=== PATIENT | female | born 1940 | race African-American/Black ===

== ENCOUNTER 2016-12-13 13:36 | Emergency (ER) | payer OTHER, MEDICAID ==
[~2016-12-13] VITALS: Ht 170.2 cm; Wt 96.0 kg
[2016-12-13] MEDS ORDERED: TRAMADOL 50MG TABLET PO ONE (14:00)
[2016-12-13] MEDS ORDERED: KETOROLAC 60MG/2ML VIAL IM ONE (15:45)
[2016-12-13 16:31] VITALS: BP 121/53
== END 2016-12-13 18:14 | disposition home or self-care (01) ==
LOC: ER 14:55
DX: M79.605 Pain in left leg (principal); I10 Essential (primary) hypertension; Z96.659 Presence of unspecified artificial knee joint
CPT/HCPCS: 73590; 96372; 99284; J1885